=== PATIENT | male | born 1980 | race Caucasian/White ===

== ENCOUNTER → 2016-05-31 | Outpatient (CLI) | payer BC ==
--- NOTE | ~2016-05-31 | US6 ---
[facility] A Service of [facility] RADIOLOGY TEXT RESULTS PATIENT: ZEYAD JARA LOCATION: [facility] : [id number] UNIT #: [id number] AGE: [address]: Wendi Kitchen MD SEX: M ORDER DR: [id number] [address] [address] [id number] O MR#: [id number] Acc #: [id number] NAME: ZEYAD JARA : 1980 SEX: M STUDY DATE/TIME: 05/31/2016 9:09 UNIT: [facility] ROOM: STUDY DESCRIPTION: US Abdominal Limited Attending Physician: Wendi Kitchen M.D. Referring Physician: Wendi Kitchen M.D. Ordering Physician: Wendi Kitchen M.D. Primary Care Physician: Wendi Kitchen M.D. MEDICAL IMAGING REPORT This report is preliminary unless electronic signature is present. EXAM Right upper quadrant ultrasound 05/31/2016 HISTORY Abnormally elevated liver enzymes for 2 weeks. FINDINGS The liver demonstrates an increase in echotexture with attenuation of the ultrasound beam characteristic of mild fatty infiltration. No cystic or solid mass lesions were seen in the liver. The intra and extrahepatic bile ducts are not dilated. The gallbladder is normal with no evidence of cholelithiasis, wall thickening or pericholecystic fluid. The common duct measures 2 mm. The pancreas and right kidney are normal. IMPRESSION Mild fatty infiltration of the liver. Otherwise negative right upper quadrant ultrasound. Dictated by... Brandon Mejia M.D. THIS IS AN ELECTRONICALLY VERIFIED REPORT Brandon Mejia M.D. at 06/02/2016 8:16 AM Kym TD: 05/31/2016 15:20 JOB #: [id number] MEDICAL IMAGING REPORT Page 1 of 1
== END | disposition home or self-care (01) ==
LOC: SGUS 08:38
DX: R74.8 Abnormal levels of other serum enzymes (principal); K76.0 Fatty (change of) liver, not elsewhere classified
CPT/HCPCS: 76705